=== PATIENT | female | born 1945 | race Caucasian/White ===

== ENCOUNTER → 2021-02-21 12:36 | Outpatient (CLI) | payer MEDICARE, SELFPAY ==
--- NOTE | ~2021-02-21 | CT_ITS ---
EXAMINATION: CT lung screening DATE: 02/21/2021 12:54 INDICATION: Personal history of tobacco dependence TECHNIQUE: Computed tomography (CT) of the chest was performed without intravenous contrast. The dose -length product was 110.61 mGy-cm. Automated exposure control and iterative reconstruction technique were employed. COMPARISON: None FINDINGS: There are a few small scattered bilateral pulmonary nodules measuring 3 mm or less. No endo bronchial lesions. No endobronchial lesions. Mild emphysema. No thoracic lymphadenopathy. There is at herosclerosis of the aorta and coronary arteries. There are cholecystectomy clips in the upper abdome n. There is nodular liver surface suggesting cirrhosis. No lytic or blastic lesions no acute osseous abnormality. IMPRESSION: 1. Lung-RADS category 2: Benign appearance or behavior. Continue annual screening with noncontrast lo w-dose chest CT in 12 months. Reviewed, dictated and finalized at location A. IMPRESSION: 1. Lung-RADS category 2: Benign appearance or behavior. Continue annual screeni ng with noncontrast low-dose chest CT in 12 months.
== END ==
PROVIDERS: PCP Family Medicine; Visit Provider Family Medicine
DX: Z12.2 Encounter for screening for malignant neoplasm of respiratory organs (principal); Z87.891 Personal history of nicotine dependence
CPT/HCPCS: 71271

== ENCOUNTER 2021-04-29 08:51 | Outpatient (CLI) | payer MEDICARE, SELFPAY ==
--- NOTE | ~2021-04-29 | MM_ITS ---
EXAMINATION: MM screening [facility] BI w dennise HISTORY: Screening mammogram TECHNIQUE: Craniocaudal and mediolateral oblique 3-D tomosynthesis images were obtained and synthetic 2-D images were generated. CAD analysis was submitted and interpreted. COMPARISON: 11/14/2017, 05/24/2016, 08/23/2012 BREAST PARENCHYMAL COMPOSITION: There are scattered areas of fibroglandular density. FINDINGS: There is a 6 mm irregular opacity in the mid to posterior depth of the upper outer left sharee ast on craniocaudal projection (craniocaudal Tomosynthesis image 37/58). Diagnostic left mammogram an d left breast ultrasound examination are recommended. Otherwise no suspicious mass, architectural distortion, malignant calcification, skin thickening or r etraction of either breast is evident. Occasional benign calcifications. IMPRESSION: 1. 6 mm irregular opacity at mid to posterior depth of upper outer left breast on craniocaudal projec tion 2. Diagnostic left mammogram and left breast ultrasound examination are recommended BI-RADS Category 0: Incomplete: Needs additional imaging evaluation. Reviewed, dictated and finalized at location A. IMPRESSION: 1. 6 mm irregular opacity at mid to posterior depth of upper outer left breast on craniocaudal projection 2. Diagnostic left mammogram and left breast ultrasound examination are recomme nded BI-RADS Category 0: Incomplete: Needs additional imaging evaluation.
--- NOTE | ~2021-04-29 | DEXA_ITS ---
Bone Density Report Name: Saida Chavis Age: 76 Sex: Female Ethnicity: White Date of : 1945 Indication: postmenopausal; height loss; asthma or emphysema; Referring Provider: Beth Sapp Study: Bone densitometry was performed. Exam Date: April 29, 2021 Accession number: [id number] Bone Density: Region BMD T-score Z-score Classification AP Spine (L1-L4) 0.925 -1.1 1.2 Osteopenia Femoral Neck (Left) 0.625 -2.0 0.0 Osteopenia Total Hip (Left) 0.824 -1.0 0.8 Normal Total Hip Bilateral Avg 0.819 -1.1 0.8 Osteopenia Femoral Neck (Right) 0.578 -2.4 -0.4 Osteopenia Total Hip (Right) 0.813 -1.1 0.7 Osteopenia World Health Organization criteria for BMD impression classify patients as: Normal (T-score at or above -1.0), Osteopenia (T-score between -1.0 and -2.5), or Osteoporosis (T-score at or below -2.5). 10-year Fracture Risk(1): Major Osteoporotic Fracture 16% Hip Fracture 6.5% Reported Risk Factors: [place] (), Neck BMD=0.578, BMI=30.9, smoking (1) FRAX(R) Version 3.08. Fracture probability calculated for an untreated patient. Fracture probability may be lower if the patient has received treatment. Clinical Information Provided by Patient: Smokes Has used the following medications: Vitamin D Has the following medical conditions: Asthma or Emphysema Patient maximum height was 59 Menopause Age: 37 No regular weight bearing exercise Drinks caffeinated beverages Onset of menses at age 14 Number of children 3 Impression: The patient has low bone mass, based on the Right Femoral Neck T-score. The patient has an estimated ten-year risk of hip fracture of 6.5% and an estimated ten-year risk of major fracture of 16%, based on the WHO FRAX algorithm. The patient has risk factors, including: smoking. Discussion: BONE DENSITY IS LOW AT ONE OR MORE SKELETAL SITES. THE PATIENT'S BMD AND CLINICAL RISK FACTORS CONTRIBUTE TO THIS PATIENT'S INCREASED RISK OF FRACTURE. This patient's lowest T-score is low at one or more skeletal sites. It meets the World Health Organization's (WHO) criteria for ?low bone mass? (T-score between -1.0 and -2.5). The patient's 10-year risk of hip fracture as calculated by FRAX exceeds the threshold where pharmacological therapy is recommended by the National Osteoporosis Foundation (NOF). However, all treatment decisions require clinical judgment and consideration of individual patient factors, including patient preferences, comorbidities, previous drug use, risk factors not captured in the FRAX model (e.g., frailty, falls, vitamin D deficiency, increased bone turnover, interval significant decline in bone density) and possible under or overestimation of fracture risk by FRAX. The patient should follow a healthful lifestyle (good nutrition with adequate calcium and vitamin D,
== END 2021-04-29 08:52 | disposition home or self-care (01) ==
PROVIDERS: PCP Family Medicine; Visit Provider Physician Assistant
DX: Z12.31 Encounter for screening mammogram for malignant neoplasm of breast (principal); Z78.0 Asymptomatic menopausal state; M85.89 Other specified disorders of bone density and structure, multiple sites; R92.8 Other abnormal and inconclusive findings on diagnostic imaging of breast
CPT/HCPCS: 77063; 77067; 77080

== ENCOUNTER 2021-05-24 12:15 | Outpatient (CLI) | payer MEDICARE, SELFPAY ==
--- NOTE | ~2021-05-24 | MMUS_ITS ---
EXAMINATION: MM diagnostic mammo unilat LT, US breast LT limited HISTORY: Follow-up left breast asymmetry TECHNIQUE: Additional 3-D tomosynthesis images of the left breast were performed and synthetic 2-D im ages were generated. CAD analysis was submitted and interpreted. High resolution Limited left breast ultrasound was performed. COMPARISON: 04/29/2021 BREAST PARENCHYMAL COMPOSITION: Breast composed of scattered areas of fibroglandular density. FINDINGS: MAMMOGRAPHIC FINDINGS: Asymmetry in the outer aspect of the left breast is less dense with spot compression, consistent with superimposed fibroglandular tissue. No discrete mass, architectural distortion or suspicious calcifi cations are identified. ULTRASOUND: Limited left breast ultrasound: Normal heterogeneous echotexture without focal solid or cystic mass. IMPRESSION: 1. No evidence for malignancy in the left breast. 2. Routine yearly screening mammogram and regular clinical breast examination are recommended. BI-RADS Category 2: Benign finding(s). Reviewed, dictated and finalized at location A. IMPRESSION: 1. No evidence for malignancy in the left breast. 2. Routine yearly screening mammogram and regular clinical breast examination a re recommended. BI-RADS Category 2: Benign finding(s).
== END 2021-05-24 12:16 | disposition home or self-care (01) ==
LOC: ANHIMG 12:19
PROVIDERS: PCP Family Medicine; Visit Provider Family Medicine
DX: R92.8 Other abnormal and inconclusive findings on diagnostic imaging of breast (principal)
CPT/HCPCS: 76642; 77065

== ENCOUNTER 2021-12-08 19:56 | Inpatient (IN) | payer MEDICARE, SELFPAY ==
[2021-12-08] VITALS (14 sets, daily range): BP systolic 153–215; BP diastolic 70–122; PULSE 60–79; RESP 13–22; TEMP 36.4–36.7; O2SAT 96–100; BMI 24.0
--- NOTE | ~2021-12-08 | XR_ITS ---
EXAMINATION: XR chest 1V portable EXAM DATE: 12/08/2021 20:14 INDICATION: Stemi, Mid Sternal Cp, States No Cardiac Hx TECHNIQUE: Portable AP frontal chest x-ray was obtained. There is no prior study for comparison. FINDINGS: The lungs are clear. There are no pleural effusions. Cardiac silhouette is prominent but magnified on this AP technique. There is no pneumothorax suspected. The bones and soft tissues are unremarkable. IMPRESSION: No acute cardiopulmonary findings. Reviewed, dictated and finalized at location G. [facility]
--- NOTE | 2021-12-08 20:04 | ED.CHESTPAIN ---
HPI - Chest Pain General Chief Complaint: Chest Pain Stated Complaint: STEMI Time Seen by Provider: 12/08/21 20:04 Source: patient, EMS and RN notes reviewed History of Present Illness HPI narrative: 76-year-old female with history of hypertension and COPD and smoking presents to the emergency department for evaluation of chest pain for 1 hour. Patient states while she was at rest she had onset of chest pain. Patient did call EMS. EMS called a STEMI in the field. Patient was treated with 324 aspirin. Patient denies any previous VT and denies ever having a stress test. Related Data Allergies Allergy/AdvReac Type Severity Reaction Status Date / Time ERYTHROMYCIN ESTOLATE Allergy Unknown Uncoded 09/23/12 14:13 Review of Systems Review of Systems: CONSTITUTIONAL: Denies fever, chills, or sweats. EYES: Denies visual changes, redness, or discharge. ENT: Denies rhinorrhea, congestion, sore throat, or otalgia. CARDIOVASCULAR: ss chest pain that radiated to left arm RESPIRATORY: Denies cough or dyspnea. GASTROINTESTINAL: nausea GENITOURINARY: Denies dysuria or hematuria. SKIN: Denies rash or itching. MUSCULOSKELETAL: Denies back pain, joint pain, or myalgia. NEUROLOGIC: Denies headache, numbness, or weakness. PSYCHIATRIC: Denies anxiety or depression. [facility] Family History Family History (Updated 06/17/18 @ 08:32 by DOCTOR UNKNOWN) Mother Family history of glaucoma Family history of chronic obstructive pulmonary disease Family history of congestive heart failure Father Family history of malignant neoplasm Family history of Alzheimer's disease Other Diabetes mellitus Social History Social History Smoking status: Current every day smoker Alcohol intake: current Exam Narrative: APPEARANCE: Well appearing, no pain, no distress, well-nourished. HEAD: normocephalic, atraumatic. EYES: PERRLA/EOMI, conjunctivae clear. NOSE: Normal no drainage NECK: Supple. No adenopathy, no masses. RESPIRATORY: Airway patent, respirations nonlabored. Clear to auscultation bilaterally, no rales, rhonchi, wheezing. CARDIOVASCULAR: Regular rate and rhythm without murmurs rubs or gallops. ABDOMINAL: Soft, nontender, nondistended, normal bowel sounds MUSCULOSKELETAL: Moves all extremities. Strength/ROM intact, No edema, No calf tenderness. NEURO: Alert. Cranial nerves II through XII intact. SKIN: Warm, dry. Normal Color PSYCHIATRIC: Normal affect/mood. Course Course Emergency Course: Upon arrival to the emergency department patient was alert and oriented. EMS EKG was sent to Dr. Jones along with our first EKG. It was read as an inferior VT. Patient was started on Brilinta, metoprolol, morphine and provided Zofran for nausea control. No nitro was given due to inferior VT. Patient was given 324 aspirin in field. Consultations Consultation #1: Dr Jones was consulted for STEMI. ECG shows an inferior stemi. Patient was treated with ASA by ems. Birlinta and metoprolol were ordered. Physician is en route to the hospital but weather is inclement. Vital Signs Vital signs: Vital Signs Temperature 98 F 12/08/21 19:57 Pulse Rate 61 12/08/21 19:57 Respiratory Rate 22 H 12/08/21 19:57 Pulse Oximetry 98 12/08/21 19:57 Temperature 98 F 12/08/21 19:57 Pulse Rate 60 12/08/21 20:41 Respiratory Rate 13 12/08/21 20:41 Blood Pressure 189/70 H 12/08/21 20:41 Pulse Oximetry 98 12/08/21 20:41 MDM - Chest Pain MDM Narrative Medical decision making narrative: STEMI called and patient was taken to the woods laborer by cardiology Lab Data Attestation: I reviewed the patient's lab results. Result diagrams: 12/08/21 20:11 12/08/21 20:11 Labs: Lab Results 12/08/21 12/08/21 12/08/21 Range/Units 20:10 20:11 20:11 WBC 6.1 (4.5-10.0) K/mm3 RBC 5.21 (4.2-5.4) M/mm3 Hgb 14.2 (12.0-15.0) g/dL Hct 44.1 (37.0-47.0) % MCV 84.6 (80-100) fl MCH 27.3 (26-34)
--- NOTE | 2021-12-08 20:05 | ECG_ITS ---
Measurements Intervals [place] Rate: 75 P: TN: 0 QRS: 40 QRSD: 97 T: 86 QT: 398 QTc: 447 Interpretive Statements SINUS RHYTHM INFERIOR ST ELEVATION MYOCARDIAL INFARCT- ACUTE POSTERIOR INFARCT- ACUTE ABNORMAL ECG Electronically Signed On 12-08-2021 20:26:57 PRESIDENT & CEO by Stuart Lindsay D.O.
[2021-12-08] MEDS: ONDANSETRON INJ 4 MG/2 ML VIAL (20:17)
[2021-12-08] MEDS: MORPHINE SULFATE (*CRX) 2 MG/ML INJ ×2 (20:17→20:26)
[2021-12-08] MEDS: TICAGRELOR 90 MG TABLET 180 MG (20:18)
[2021-12-08 20:21] LABS: Basophils Percent Auto 0.7 % (0.2-1.2); Eosinophils Absolute Auto 0.1 K/mm3 (0-0.3); Eosinophils Percent Auto 1.2 % (0-4.4); Hematocrit 44.1 % (37.0-47.0); Hemoglobin 14.2 g/dL (12.0-15.0); Immature Granulocyte Absolute 0.01 K/mm3 (0.00-0.031); Immature Granulocyte Percent A 0.2 % (0-0.5); Lymphocytes Absolute Auto 2.07 K/mm3 (0.9-3.2); Lymphocytes Percent Auto 34.1 % (18.3-44.2); Mean Corpuscular HGB Conc 32.2 g/dl (32-36); Mean Corpuscular Hemoglobin 27.3 pg (26-34); Mean Corpuscular Volume 84.6 fl (80-100); Mean Platelet Volume 10.3 fl (7.4-10.4); Monocytes Absolute Auto 0.7 K/mm3 (0.1-0.6); Monocytes Percent Auto 10.7 % (2.6-8.5); Neutrophils Absolute Auto 3.2 K/mm3 (1.3-6.7); Neutrophils Percent Auto 53.1 % (45.5-73.1); Platelet Count Result 140 k/mm3 (150-375); Red Blood Count 5.21 M/mm3 (4.2-5.4); Red Cell Distribution Width 15.6 % (11.5-14.5); White Blood Count 6.1 K/mm3 (4.5-10.0)
--- NOTE | 2021-12-08 20:29 | PC.NURSE ---
Daughter (Fiorella) contacted @ [phone]. notified that pt is in the ER, getting prepped for dental laboratory supervisor and staff will call with an update after. If daughter is unavailable and does not answer the phone, please leave a message with call back number for nurses station. daughter has to work at 6am and may not answer the phone.
[2021-12-08 20:33] LABS: EDCOVIDSCREEN Negative (Negative)
[2021-12-08 20:36] LABS: Partial Thromboplastin Time 30.7 SECONDS (22.3-36.8)
[2021-12-08 20:39] LABS: Alanine Aminotransferase 23 U/L (4-35); Albumin Level 4.2 g/dL (3.5-5.1); Alkaline Phosphatase 159 U/L (38-126); Anion Gap 8 mmol/L (8-16); Aspartate Amino Transferase 40 U/L (14-36); Bilirubin,Total 0.5 mg/dL (0.2-1.3); Blood Urea Nitrogen 14 mg/dL (7-17); Calcium 9.9 mg/dL (8.4-10.2); Carbon Dioxide 27 mmol/L (22-30); Chloride 103 mmol/L (98-107); Cholesterol 252 mg/dL (0-200); Estimated Glomerular Filt Rate > 60; Glucose 168 mg/dL (65-110); HDL Direct 39 mg/dL; Potassium 3.5 mmol/L (3.4-5.0); Sodium 138 mmol/L (137-145); Triglycerides 159 mg/dL (<150)
[2021-12-08 20:50] LABS: LDL Cholesterol Direct 165 mg/dL
[2021-12-08 20:56] LABS: Troponin I 0.185 ng/mL (0.000-0.034)
--- NOTE | 2021-12-08 21:51 | ECG_ITS ---
Measurements Intervals [place] Rate: 54 P: 84 [place]: 212 QRS: 28 QRSD: 90 T: 0 QT: 426 QTc: 406 Interpretive Statements SINUS BRADYCARDIA WITH MARKED SINUS ARRHYTHMIA WITH FIRST DEGREE AV BLOCK MINIMAL Q WAVES- INFERIOR LEADS NONSPECIFIC ST & T-WAVE ABNORMALITY- ANTERIOR LEADS BASELINE ARTIFACT- I, II, III, AVR, AVL, AVF, V1-V6 ABNORMAL ECG Electronically Signed On 12-09-2021 6:43:02 FACILITY MANAGER HISTOLOGY by Stuart Lindsay D.O.
--- NOTE | 2021-12-08 21:56 | PM.IMHP ---
H&P: HPI History of Present Illness Date/Time: 12/08/21 21:56 Chief Complaint: chest pain Narrative: this is a 76-year-old woman who began to experience substernal chest pain at her home and 911 was called to the scene. ECG in the field was found to be diagnostic of acute inferior wall MO. STEMI protocol was activated. The patient reports no prior history of heart disease. She does have a history of diabetes hypertension and dyslipidemia and cigarette smoking. No further history is obtainable at the time of this emergency. She arrives in the cardiac catheterization lab experiencing 5 to 6/10 chest pain. Review of Systems Review of Systems: ROS unobtainable: Yes unobtainable due to medical condition [facility] Family History Family History (Updated 06/17/18 @ 08:32 by DOCTOR UNKNOWN) Mother Family history of glaucoma Family history of chronic obstructive pulmonary disease Family history of congestive heart failure Father Family history of malignant neoplasm Family history of Alzheimer's disease Other Diabetes mellitus Social History Social History Smoking status: Current every day smoker Alcohol intake: current Meds Home Medications and Allergies Allergies Allergy/AdvReac Type Severity Reaction Status Date / Time ERYTHROMYCIN ESTOLATE Allergy Unknown Uncoded 09/23/12 14:13 Vital Signs Vital Signs - 24 hr 12/08/21 19:57 12/08/21 20:03 12/08/21 20:04 Temperature 36.6 C Pulse Rate 61 Respiratory Rate 22 H Blood Pressure 215/93 H 211/122 H Pulse Oximetry 98 12/08/21 20:20 12/08/21 20:21 12/08/21 20:27 Temperature Pulse Rate 76 78 Respiratory Rate 20 14 Blood Pressure 191/91 H 188/87 H Pulse Oximetry 98 99 96 12/08/21 20:31 12/08/21 20:41 Temperature Pulse Rate 71 60 Respiratory Rate 17 13 Blood Pressure 197/80 H 189/70 H Pulse Oximetry 96 98 Exam Const: General: in distress and uncomfortable Other: overweight white female appearing her stated age in mild distress with chest pain HENMT: Mouth: Yes moist mucous membranes Eyes: Sclera: sclerae normal Pupils: Equal, round and reactive pupils present Neck: Neck: supple and no JVD Other: carotid pulses are intact and there are no audible bruits. Resp: Effort & Inspection: normal respiratory effort Auscultation: clear to auscultation bilaterally Cardio: Rate: regular rate Rhythm: regular rhythm Other: No murmur S4 gallop is audible GI: GI Palp: Yes Soft to palpation Auscultation: normal bowel sounds Skin: General skin exam: normal color Neuro: Cognition (Neuro): normal cognition Extrem: General: normal to inspection H&P: Results Labs Labs: Short CBC 12/08/21 Range/Units 20:11 WBC 6.1 (4.5-10.0) K/mm3 Hgb 14.2 (12.0-15.0) g/dL Hct 44.1 (37.0-47.0) % Plt Count 140 L (150-375) k/mm3 BMP 12/08/21 20:11 Sodium 138 Potassium 3.5 Chloride 103 Carbon Dioxide 27 BUN 14 Creatinine 0.80 Glucose 168 H Calcium 9.9 Cardiac Enzymes 12/08/21 Range/Units 20:11 Troponin I 0.185 H* (0.000-0.034) ng/mL Liver Function 12/08/21 Range/Units 20:11 Total Bilirubin 0.5 (0.2-1.3) mg/dL AST 40 H (14-36) U/L ALT 23 (4-35) U/L Alkaline Phosphatase 159 H (38-126) U/L Albumin 4.2 (3.5-5.1) g/dL Assessment and Plan Additional Plan this is a 76-year-old woman with risk factors including hypertension diabetes dyslipidemia and cigarette smoking presenting with ischemic chest pain and ECG evidence of acute inferior current of injury. Preparations being made for emergency angiography and revascularization based on findings Abe Jones MD LOCATED [facility]IN [facility]
--- NOTE | 2021-12-08 21:59 | WPDCARDPROC ---
Cardiac Cath Procedure Note Date of procedure:: 12/08/21 Performing physician:: Abe Jones MD Indication:: acute inferior wall DC Brief clinical history:: this is a 76-year-old woman presents this evening with chest pain from home. ECG in the field demonstrates acute inferior current of injury. Risk factors for coronary disease include hypertension diabetes dyslipidemia and smoking. Procedure Procedure performed:: Emergency coronary angiography emergency PCI of the RPL left ventriculography Sedation/Medication given:: no sedation Access site:: right femoral artery Estimated blood loss:: 50 cc Procedure note:: patient was brought to the cardiac catheterization lab in the emergency setting described above. The right femoral triangle was prepared and draped in the usual fashion. Anesthesia was provided with 1% lidocaine infiltrated locally. Using the modified Seldinger technique the femoral artery was punctured and a 6 [place] vascular sheath was placed. After this I used a standard 5 [place] FL4 catheter to engage and inject the left coronary artery in multiple projections. I then used a 5 [place] JR4 guiding catheter to engage and inject the right coronary artery in orthogonal projections. Following this the cineangiograms were reviewed. PCI of the right coronary artery /RPL branch were recommended carried out as detailed below. The patient received aspirin and 180 mg of Brilinta in the emergency department. She was systemically anticoagulated with Angiomax bolus and infusion for procedural anticoagulation. Following conclusion of PCI as described below a 5 [place] angled pigtail catheter was used to left-sided hemodynamics and to inject LV g in the RAMIREZ projection. Following this the sheath was sutured into position the case was terminated. He take the ICU for post DC PCI recovery. The procedure was uncomplicated there was no groin hematoma upon leaving the cardiac catheterization lab. Findings:: Hemodynamics: The central aortic pressure is 196 over 70 left ventricle 196/5 end-diastolic pressure 22. There was no gradient on pullback across the aortic valve. Left ventricle: Left ventricle is normal in size the inferior wall is akinetic there is anterior wall and apex contract well global ejection fraction 50%. The left main coronary artery is widely patent the left anterior descending is a moderate to large caliber artery extending down to around the apex the LAD has diffuse luminal irregularities but no flow-limiting lesions are identified. The circumflex is a medium caliber artery giving rise to the marginal branches and a posterior branch. The circumflex system is also remarkable for mild diffuse luminal irregularities but no flow-limiting lesions are seen. The right coronary artery is large caliber and dominant to the posterior circulation. The RCA trunk is ectatic Aubree dilated with diffuse luminal irregularities. The RPL appears to be the culprit for this acute DC it is totally occluded just after the origin of the RPDA. The RPDA is diseased at its origin but is very small. Intervention: I used a 0.014 BMW coronary guidewire to traverse the occlusion in the are PL. The lesion was pre-dilated using a 3 x 20 mm emerge balloon. Following this there was ROSARIO 3 flow restored into the RPL branch. For a short time the patient then had reperfusion arrhythmias including sinus bradycardia and accelerated idioventricular rhythm. All of this was asymptomatic and requires no treatment. Following this I stented the target lesion in the RPL using a 3 x 26 mm Orsiro stent with an excellent anatomical result. The origin of the RPDA had 80-90 stenosis in it at that time. I withdrew the guidewire from the RPL and directed it easily into the RPDA. I used a 2 mm emerge balloon at nominal pressure with 2 to the dilatations at this segment and the ostium of the PDA was still stenotic. For that reason I stented using a 2.25
--- NOTE | 2021-12-08 22:20 | ECG_ITS ---
Measurements Intervals [place] Rate: 77 P: 68 [place]: 230 QRS: 40 QRSD: 88 T: 33 QT: 398 QTc: 451 Interpretive Statements SINUS RHYTHM WITH SINUS ARRHYTHMIA WITH FIRST DEGREE AV BLOCK MINIMAL Q WAVES- INFERIOR LEADS BORDERLINE ST-T WAVE ABNORMALITY- DIFFUSE LEADS BASELINE ARTIFACT- I, II, III, AVR, AVL, AVF ABNORMAL ECG Electronically Signed On 12-09-2021 6:44:33 MCAT INSTRUCTOR by Stuart Lindsay D.O.
--- NOTE | 2021-12-08 23:05 | PC.NURSE ---
This patient, Saida Chavis, was admitted to Intensive Care Unit-1. Patient/family oriented to hospital policies and general routines including ID bracelet, bed and alarms, visiting hours, pain management, procedures, bathroom and other care routines, personal items, smoking policy, room service/diet, and visiting hours. Information on how to activate the Rapid Response Team has been discussed. Patient/Family are encouraged to report perceived risks to care and to ask questions if they do not understand what they are told or what they should do.
[2021-12-08] MEDS: METOPROLOL TARTRATE 25 MG TABLET PO (23:19)
[2021-12-08] MEDS: diphenhydrAMINE HCl CAP 25 MG CAPSULE 50 MG PO (23:19)
[2021-12-08] MEDS: SODIUM CHLORIDE 0.9% IV 1,000 ML 125 ML IV CONT (23:20)
--- NOTE | 2021-12-08 23:42 | PC.NURSE ---
2230 angiomax infusion completed. Pt reminded of bedrest with head flat and right leg straight. Verbalizes understanding.
[2021-12-09] VITALS (27 sets, daily range): BP systolic 127–179; BP diastolic 56–94; PULSE 18–75; RESP 16–97; TEMP 36.3–36.9; O2SAT 93–100
--- NOTE | 2021-12-09 | ECHO_ITS ---
Patient Info Name: Saida Chavis Age: 76 years : 1945 Gender: Female Ht: 64 in Wt: 141 lbs BSA: 1.71 m2 HR: 54 bpm BP: 112 / 90 mmHg Heart Rhythm: Sinus Rhythm Exam Date: 12/09/2021 10:57 AM Exam Location: [facility] Patient Status: Inpatient Admit Date: 12/08/2021 Staff Ordering Physician: Raymond Kumari MD Professor Of History: [place], DALICS, RT Attending Provider: Abe Jones MD Exam Type: CA echo doppler color flow Study Info Indications I21.3 - ST elevation (STEMI) myocardial infarction of unspecified site Complete two-dimensional, color flow and Doppler transthoracic echocardiogram is performed. Strain analysis performed. Summary 1. Complete two-dimensional, color flow and Doppler transthoracic echocardiogram is performed. 2. There is mild concentric increased left ventricular wall thickness. 3. Left ventricular systolic function is normal, estimated at 65-70%. 4. No visible regional wall motion abnormalities. 5. There is mild aortic valve sclerosis. Left Ventricle Left ventricular chamber dimension is normal. Left ventricular systolic function is normal, estimated at 65-70%. There is mild concentric increased left ventricular wall thickness. The left ventricular diastolic function is grade I diastolic dysfunction. No visible regional wall motion abnormalities. Right Ventricle Right ventricular chamber dimension is normal. Left Atria Left atrial chamber dimension is normal. Right Atria Right atrial chamber dimension is normal. Aortic Valve The aortic valve is trileaflet. There is mild aortic valve sclerosis. Pulmonic Valve The pulmonic valve is not well visualized. Mitral Valve The mitral valve has normal leaflets. Tricuspid Valve The tricuspid valve leaflets are normal. Pericardium/Pleural The pericardium appears normal. Aorta The aortic root size at the sinus of Valsalva is normal. Left Ventricular Outflow Tract Name Value Normal LVOT 2D LVOT Diameter 2.0 cm LVOT Doppler LVOT Peak Gradient 2 mmHg LVOT Mean Gradient 1 mmHg LVOT VTI 20 cm LVOT VTI/AV VTI Ratio 0.7 LVOT Stroke Volume 59 ml LVOT CO 3.0 l/min LVOT CI 1.8 l/min/m2 Mitral Valve Name Value Normal MV Doppler MV Decel Steele 316 cm/s2 MV PHT 77 ms MV Area (PHT) 2.8 cm2 4.0-5.0 MV Diastolic Function MV E Peak Velocity 84 cm/s MV A Peak Velocity 88 cm/s MV E/A 1.0
--- NOTE | 2021-12-09 05:11 | ECG_ITS ---
Measurements Intervals [place] Rate: 52 P: 52 PA: 195 QRS: 11 QRSD: 88 T: 23 QT: 467 QTc: 438 Interpretive Statements SINUS BRADYCARDIA WITH SINUS ARRHYTHMIA EARLY PRECORDIAL R/S TRANSITION CONSIDER INFERIOR INFARCT, AGE INDETERMINATE BORDERLINE ST ABNORMALITY- HIGH LATERAL LEADS ABNORMAL ECG Electronically Signed On 12-09-2021 12:08:15 ANDROID PROGRAMMER by Stuart Lindsay D.O.
[2021-12-09] MEDS: TICAGRELOR 90 MG TABLET PO ×2 (08:19→21:34)
[2021-12-09] MEDS: LOSARTAN POTASSIUM 25 MG TABLET PO (08:19)
[2021-12-09] MEDS: ROSUVASTATIN 10 MG TABLET 20 MG PO (08:19)
[2021-12-09] MEDS: ASPIRIN 81 MG CHEWABLE TABLET PO (08:21)
[2021-12-09 08:43] LABS: Glucose Point of Care 138 mg/dl (65-105)
--- NOTE | 2021-12-09 09:27 | WPDCNINT ---
Assessment and Plan Assessment and plan (1) Acute inferior myocardial infarction: Code(s): I21.19 - ST elevation (STEMI) myocardial infarction involving other coronary artery of inferior wall Status: Acute Assessment and Plan: status post PCI continue dual antiplatelet therapy, ARB, beta-dio, statin check echo telemetry monitoring (2) Diabetes mellitus: Code(s): E11.9 - Type 2 diabetes mellitus without complications Status: Acute Assessment and Plan: sliding scale insulin resume metformin (3) Tobacco abuse: Code(s): Z72.0 - Tobacco use Status: Acute Assessment and Plan: patient was counseled to quit smoking more than 5 minutes I do not think she is interested at this point (4) COPD (chronic obstructive pulmonary disease): Code(s): J44.9 - Chronic obstructive pulmonary disease, unspecified Status: Acute Assessment and Plan: patient appears to have undiagnosed COPD as she has wheezing on exam p.r.n bronchodilators (5) Hyperlipidemia: Code(s): E78.5 - Hyperlipidemia, unspecified Status: Acute Assessment and Plan: continue statin Additional Plan DVT prophylaxis - start Lovenox from tomorrow Nutrition - heart healthy diet Code Status - Full Code IS, 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 pain was 5/10, pressure, no radiation, no aggravating or relieving factor and was associated with shortness of breath nausea and dizziness.. 911 was called to the scene. ECG in the field was found to be diagnostic of acute inferior wall [place]. STEMI protocol was activated. Patient was taken to cardiac catheterization lab and underwent PCI. Her chest pain resolved post procedure. This morning when I evaluated the patient she states her pain has completely resolved. She denies any complaints at this time. Review of system was positive for chronic cough postnasal drip. she also admitted to having some wheezing occasionally. All other systems were reviewed and were negative. She has never been evaluated for COPD And she is vaccinated against COVID-19 Review of Systems Review of Systems: All systems reviewed & are unremarkable except as noted in HPI and below (HPI) [facility] Family History Family History Mother Family history of glaucoma Family history of congestive heart failure Family history of chronic obstructive pulmonary disease Father Family history of malignant neoplasm Family history of Alzheimer's disease Grandparent Cerebrovascular accident Son Hypertension Other Diabetes mellitus Social History Social History Smoking packs per day: 1 Smoking cigarettes per day: 20.0 Years smoked: 60 Smoking pack-years: 60.00 Smoking status: Current every day smoker Tobacco type: cigarettes Second hand tobacco smoke exposure: No Alcohol intake: never Substance use: never Spiritual care concerns: No Meds Home Medications and Allergies Home Medications Medication Instructions Recorded Confirmed Type alendronate See Rx Instructions .ROUTE .COMPLEX 12/09/21 12/09/21 History amlodipine 5 mg PO DAILY 12/09/21 12/09/21 History bimatoprost [Lumigan] 1 drp EACH EYE HS 12/09/21 12/09/21 History lisinopril 20 mg PO DAILY 12/09/21 12/09/21 History metformin 500 mg PO BID 12/09/21 12/09/21 History Allergies Allergy/AdvReac Type Severity Reaction Status Date / Time ERYTHROMYCIN ESTOLATE Allergy Unknown Rash Uncoded 12/09/21 00:08 Vital Signs Vital Signs - 24 hr 12/08/21 19:57 12/08/21 20:03 12/08/21 20:04 Temperature 36.6 C Pulse Rate 61 R
[2021-12-09 12:46] LABS: Glucose Point of Care 145 mg/dl (65-105)
[2021-12-09 12:47] LABS: Hemoglobin A1C 6.9 % (<5.7)
[2021-12-09 17:07] LABS: Glucose Point of Care 206 mg/dl (65-105)
[2021-12-09] MEDS: INSULIN ASPART (*BKC) 100 UNITS/ML SUB-Q (17:11)
[2021-12-09] MEDS: metFORMIN HCL 500 MG TABLET PO (17:35)
[2021-12-09] MEDS: METOPROLOL TARTRATE 25 MG TABLET PO (21:33)
[2021-12-09] MEDS: LATANOPROST 0.005% OP SOLN 2.5 ML BTL 1 DROP EACH EYE (21:34)
[2021-12-09 21:51] LABS: Glucose Point of Care 120 mg/dl (65-105)
[2021-12-10] VITALS: BP 146/57; PULSE 61; PULSE 63; RESP 22; TEMP 36.9; O2SAT 97
[2021-12-10 04:00] VITALS: PULSE 66
[2021-12-10 04:15] VITALS: BP 139/56; PULSE 60; RESP 16; TEMP 36.3; O2SAT 96
--- NOTE | 2021-12-10 04:22 | PC.NURSE ---
Report given to Estefany GEORGE on 3rd med surge 12/07/21 [id number]. Pt being packed up and will transport per wheelchair Belongings and medications sent with patient.
[2021-12-10 04:30] LABS: Hematocrit 38.3 % (37.0-47.0); Mean Corpuscular HGB Conc 31.3 g/dl (32-36); Mean Corpuscular Hemoglobin 27.1 pg (26-34); Mean Corpuscular Volume 86.5 fl (80-100); Mean Platelet Volume 10.4 fl (7.4-10.4); Platelet Count Result 130 k/mm3 (150-375); Red Blood Count 4.43 M/mm3 (4.2-5.4); Red Cell Distribution Width 15.8 % (11.5-14.5); White Blood Count 6.1 K/mm3 (4.5-10.0)
[2021-12-10 04:49] LABS: Alanine Aminotransferase 24 U/L (4-35); Albumin Level 3.5 g/dL (3.5-5.1); Alkaline Phosphatase 122 U/L (38-126); Anion Gap 2 mmol/L (8-16); Aspartate Amino Transferase 73 U/L (14-36); Bilirubin,Total 0.8 mg/dL (0.2-1.3); Blood Urea Nitrogen 13 mg/dL (7-17); Calcium 9.7 mg/dL (8.4-10.2); Carbon Dioxide 24 mmol/L (22-30); Chloride 108 mmol/L (98-107); Estimated CRCL calculation 42 ml/min; Estimated Glomerular Filt Rate > 60; Glucose 128 mg/dL (65-110); Magnesium 1.8 mg/dL (1.6-2.3); Potassium 4.1 mmol/L (3.4-5.0); Sodium 134 mmol/L (137-145)
--- NOTE | 2021-12-10 04:53 | PC.NURSE ---
This patient, Saida Chavis, was received from [ ICU] on 12/10/21 at 0440. Patient/family oriented to unit policies and routines
[2021-12-10 06:30] LABS: Glucose Point of Care 129 mg/dl (65-105)
[2021-12-10 08:00] VITALS: PULSE 60
[2021-12-10] MEDS: ROSUVASTATIN 10 MG TABLET 20 MG PO (08:25)
[2021-12-10 08:26] VITALS: PULSE 70
[2021-12-10] MEDS: LOSARTAN POTASSIUM 25 MG TABLET PO (08:26)
[2021-12-10] MEDS: TICAGRELOR 90 MG TABLET PO (08:26)
[2021-12-10] MEDS: METOPROLOL TARTRATE 25 MG TABLET PO (08:26)
[2021-12-10] MEDS: metFORMIN HCL 500 MG TABLET PO (08:26)
[2021-12-10] MEDS: ENOXAPARIN 40 MG/0.4 ML SYRINGE SUB-Q (08:27)
[2021-12-10] MEDS: ASPIRIN 81 MG CHEWABLE TABLET PO (08:27)
[2021-12-10 11:42] LABS: Glucose Point of Care 157 mg/dl (65-105)
[2021-12-10 12:00] VITALS: PULSE 58
--- NOTE | 2021-12-10 13:16 | PM.DS ---
DS: Admitting Diagnosis Discharge Date 12/10/2021 Admitting Diagnosis Acute coronary syndrome-inferior ST-elevation myocardial infarction DS: Summary Hospital Course Hospital Course: 76-year-old female with hypertension, tobacco abuse. Patient was brought to [facility] on 12/08/2021 with chest pain found to have inferior ST-elevation NC. She was emergently taken to the cardiac catheterization lab by Dr. Jones, and underwent primary PCI/JEANIE x2 RPL and RPDA. Echocardiogram showed relatively preserved ejection fraction. Post PCI hospital course remained uneventful. On the day of discharge, patient denied any ongoing chest pain or shortness of breath. She was eager to go home. Patient was advised to be fully compliant with medical regimen, especially dual antiplatelet therapy with aspirin and ticagrelor. Patient was strongly advised to quit tobacco. Time spent discussing smoking cessation with patient: 3 to 10 minutes Status at Discharge Functional status at discharge: independent ambulation Time Spent with Patient Time attestation: Total time spent providing and/or coordinating discharge services: 42 minutes Time spent: Greater than 30 minutes Exam Narrative: PHYSICAL EXAMINATION: GENERAL: Alert, oriented, no acute distress MENTAL STATUS: affect appropriate to mood EYES: Extraocular movements intact, no pallor EARS: External ears appear normal, hearing grossly normal NOSE: Normal and patent, no discharge MOUTH: Mucous membranes moist, tongue normal NECK: Supple, no JVD CHEST: Coarse breath sounds HEART: Normal rate, regular rhythm, normal S1 and S2 ABDOMEN: Soft, nontender NEUROLOGICAL: Alert, oriented, normal speech, no gross motor deficits MUSCULOSKELETAL: No major deformity, no amputation EXTREMITIES: Right groin access site unremarkable SKIN: no rash on the exposed area, no cyanosis PSYCHIATRIC: Normal mood, appropriate affect DS: Data Data Completed and Pending Labs on day of discharge: Labs from last 24 hours 12/10/21 12/10/21 12/10/21 11:36 06:19 04:14 WBC RBC Hgb Hct MCV MCH MCHC RDW Plt Count MPV % Immature Plt Fraction Sodium 134 L Potassium 4.1 Chloride 108 H Carbon Dioxide 24 Anion Gap 2 L BUN 13 Creatinine 0.90 Estim Creat Clear Calc 42 Estimated GFR > 60 Glucose 128 H POC Capillary Glucose 157 H 129 H Calcium 9.7 Magnesium 1.8 Total Bilirubin 0.8 AST 73 H ALT 24 Alkaline Phosphatase 122 Total Protein 6.0 L Albumin 3.5 12/10/21 12/09/21 12/09/21 04:14 21:39 16:47 WBC 6.1 RBC 4.43 Hgb 12.0 Hct 38.3 MCV 86.5 MCH 27.1 MCHC 31.3 L RDW 15.8 H Plt Count 130 L MPV 10.4 % Immature Plt Fraction 5.0 Sodium Potassium Chloride Carbon Dioxide Anion Gap BUN Creatinine Estim Creat Clear Calc Estimated GFR Glucose POC Capillary Glucose 120 H 206 H Calcium Magnesium Total Bilirubin AST ALT Alkaline Phosphatase Total Protein Albumin Discharge Plan Discharge Attending physician on discharge: Alvarez Silver Discharging Clinician: Alvarez Silver Patient Disposition: Home, Self-Care Activity: other - see discharge instructions Diet: heart healthy Discharge Instructions: [facility] [address] [place] [address] DISCHARGE INSTRUCTIONS - POST PCI Activit
== END 2021-12-10 15:15 | disposition home or self-care (01) | DRG 247 ==
LOC: ANHED 20:35 → ANHICU 12-09 00:02 → ANH3MEDSUR 12-10 13:14 → ANHICU 12-12 14:35
PROVIDERS: Internal Medicine; Admitting Provider Specialist; Emergency Provider Emergency Medicine; PCP Family Medicine; Visit Provider Specialist
PROC: 4A023N7 Measurement of Cardiac Sampling and Pressure, Left Heart, Percutaneous Approach (ICD-10-PCS; CPT 93452; principal; 2021-12-08 20:20)
PROC: 4A023N7 Measurement of Cardiac Sampling and Pressure, Left Heart, Percutaneous Approach (ICD-10-PCS; 2021-12-08 20:20)
DX: I21.19 ST elevation (STEMI) myocardial infarction involving other coronary artery of inferior wall (principal); Z82.49 Family history of ischemic heart disease and other diseases of the circulatory system; Z20.822 Contact with and (suspected) exposure to COVID-19; Z79.899 Other long term (current) drug therapy; I10 Essential (primary) hypertension; E11.9 Type 2 diabetes mellitus without complications; E78.5 Hyperlipidemia, unspecified; F17.200 Nicotine dependence, unspecified, uncomplicated; J44.9 Chronic obstructive pulmonary disease, unspecified
CPT/HCPCS: 36415; 71045; 80053; 80061; 82948; 83036; 83735; 84484; 85025; 85027; 85055; 85610; 85730; 86850; 86900; 86901; 87426; 93005; 93306; 93458; 96374; 96375; 99285; A9270; C1725; C1769; C1874; C1887; C1894; C9606; C9803; J0461; J0583; J1644; J1650; J1815; J2270; J2405; J7030; J7040

== ENCOUNTER 2022-02-07 10:56 | Outpatient (RCR) | payer MEDICARE, SELFPAY ==
[2022-02-07 11:41] VITALS: PULSE 91
== END 2022-02-08 10:29 | disposition home or self-care (01) ==
LOC: ANHCPREHAB 10:56
PROVIDERS: PCP Family Medicine; Visit Provider Nurse Practitioner Adult Health
DX: Z95.5 Presence of coronary angioplasty implant and graft (principal)
CPT/HCPCS: 93798

== ENCOUNTER 2022-05-02 10:28 | Emergency (ER) | payer MEDICARE, SELFPAY ==
[2022-05-02 10:37] VITALS: BP 182/73; PULSE 84; RESP 16; TEMP 36.2; O2SAT 98
--- NOTE | 2022-05-02 11:47 | ED.GENADULT ---
HPI - General Adult General Chief complaint: Animal Bite Stated complaint: bitten by raccoon Time Seen by Provider: 05/02/22 11:03 History of Present Illness HPI narrative: Patient is 77 year old female here for evaluation after getting bit to her left wrist by a raccoon this morning. She states that she was taking trash this morning when she suddenly got bit by a small raccoon in the trash. The raccoon ran off. She was seen by her primary care provider this morning who irrigated the wound and covered it with antibiotic ointment and a dressing. Patient states that she is not up-to-date on her tetanus. Denies paresthesias in the hand. Has not taken anything for pain yet. Related Data Home Medications Medication Instructions Recorded Confirmed alendronate 70 mg tablet See Rx Instructions .Route .COMPLEX 12/09/21 02/07/22 lisinopril 20 mg tablet 40 mg PO DAILY 12/09/21 02/07/22 metformin 1,000 mg tablet 500 mg PO BID 12/09/21 02/07/22 cholecalciferol (vitamin D3) 25 25 mcg PO DAILY 02/07/22 02/07/22 mcg (1,000 unit) tablet (Vitamin D3) coenzyme Q10 100 mg capsule 50 mg PO DAILY 02/07/22 02/07/22 (CoQ-10) Allergies Allergy/AdvReac Type Severity Reaction Status Date / Time ERYTHROMYCIN ESTOLATE Allergy Unknown Rash Uncoded 12/09/21 00:08 Review of Systems Review of Systems: Gen: Denies fevers or chills Eyes: Denies eye pain or visual change ENT: Denies congestion Respiratory: Denies shortness of breath or cough CV: Denies chest pain or palpitations GI: Denies abdominal pain nausea, emesis or diarrhea denies burning, urgency, frequency or hematuria Musculoskeletal: Denies back pain or muscle pain Neuro: Denies numbness, tingling, weakness or focal weakness Skin: Bite to left forearm Except as documented, all other systems reviewed and negative PMFSH Family History Family History Mother Family history of glaucoma Family history of congestive heart failure Family history of chronic obstructive pulmonary disease Father Family history of malignant neoplasm Family history of Alzheimer's disease Grandparent Cerebrovascular accident Son Hypertension Other Diabetes mellitus Social History Social History Smoking packs per day: 1.5 Smoking cigarettes per day: 30.0 Years smoked: 59 Smoking pack-years: 88.50 Smoking status: Current every day smoker Tobacco type: cigarettes Second hand tobacco smoke exposure: No Additional smoking assessment comments: down to 0.5 packs per day Alcohol intake: never Substance use: never Spiritual care concerns: No Exam Narrative: Gen: Alert, oriented, no acute distress Eyes: EOMI, no icterus Pulm: Respirations even and unlabored, symmetric thorax expansion, no audible stridor or visible cyanosis CV: 2+ radial pulses bilaterally. Brisk capillary refill. GI: No distension, no voluntary/involuntary guarding Neuro: AOx4, moves all extremities without apparent difficulty or weakness, follows commands Skin: Patient has numerous bite hough to the radial aspect of her left distal forearm, no active bleeding. 1 cm linear laceration over the radial aspect of the left wrist, no active bleeding. Psych: Normal mood/affect, insight/judgement good, adequate fund of knowledge, recent/remote memory intact Course Vital Signs Vital signs: Vital Signs Temperature 97.2 F L 05/02/22 10:37 Pulse Rate 84 05/02/22 10:37 Respiratory Rate 16 05/02/22 10:37 Blood Pressure 182/73 H 05/02/22 10:37 Pulse Oximetry 98 05/02/22 10:37 Oxygen Delivery Room Air 05/02/22 10:37 Temperature 97.2 F L 05/02/22 10:37 Pulse Rate 84 05/02/22 10:37 Respiratory Rate 16 05/02/22 10:37 Blood Pressure 182/73 H 05/02/22 10:37 Pulse Oximetry 98 05/02/22 10:37 Oxygen Delivery Room Air 05/02/22 10:37 Medical Decision Making MDM Narrative Med
[2022-05-02] MEDS: TETANUS,DIPHTHERIA,AC PERTUSSIS ADULT (0.5 ML) BOOSTRIX IM (12:03)
[2022-05-02] MEDS: RABIES IMMUNE GLOBULIN/PF 1,500 UNITS/5 ML VIAL 1200 UNITS IM (12:20)
[2022-05-02] MEDS: RABIES VACCINE (RABAVERT) 2.5 UNITS VIAL IM (12:20)
[2022-05-02] MEDS: ACETAMINOPHEN 325 MG TABLET 650 MG PO (12:29)
== END 2022-05-02 13:01 | disposition home or self-care (01) ==
PROVIDERS: Emergency Provider Emergency Medicine; PCP Family Medicine
DX: S61.552A Open bite of left wrist, initial encounter (principal); Z23 Encounter for immunization; Z79.84 Long term (current) use of oral hypoglycemic drugs; F17.210 Nicotine dependence, cigarettes, uncomplicated; W55.51XA Bitten by raccoon, initial encounter
CPT/HCPCS: 90471; 90472; 90675; 90715; 96372; 99283; 90375; A9270

== ENCOUNTER 2022-05-16 07:00 | Outpatient (RCR) | payer MEDICARE, SELFPAY | END 2022-08-03 23:59 | disposition home or self-care (01) | LOC: ANHVASCINF 07:00 | PROVIDERS: PCP Family Medicine; Visit Provider Physician Assistant | DX: Z20.3 Contact with and (suspected) exposure to rabies (principal) | CPT/HCPCS: 90471; 90675 ==

== ENCOUNTER 2023-01-23 00:04 | Day surgery (SDC) | payer MEDICARE, SELFPAY ==
[2023-01-17 10:15] VITALS: BMI 26.2
[2023-01-23 09:53] VITALS: BP 155/70; PULSE 94; RESP 18; TEMP 36.6; O2SAT 98
--- NOTE | 2023-01-23 10:07 | WPDANESEPPF ---
Anes - Initial Pre Proc Eval Procedure: Operation Date: 01/23/23 11:00 Proposed Procedures p Colonoscopy - Jose Caballero MD Date/Time: 01/23/23 10:07 Surgeon: Jose Caballero MD Pre Op Diagnosis: diarrhea, neoplasm screening Patient Data Age: 78 Gender: F Height: 1.47 m Weight: 57.8 kg Last Vital Signs Temp 97.9 F 01/23/23 09:53 Pulse 94 01/23/23 09:53 Resp 18 01/23/23 09:53 BP 155/70 H 01/23/23 09:53 Pulse Ox 98 01/23/23 09:53 O2 Del Method Room Air 01/23/23 09:53 Allergies Allergy/AdvReac Type Severity Reaction Status Date / Time erythromycin base Allergy Unknown Rash Verified 01/23/23 09:52 Home Medications Medication Instructions Recorded Confirmed Type aspirin 81 mg chewable tablet 81 mg PO DAILY@0800 #30 tabs 12/10/21 01/17/23 Rx (Children's Aspirin) ticagrelor 90 mg tablet (Brilinta) 90 mg PO Q12HR #30 tabs 12/10/21 01/17/23 Rx cholecalciferol (vitamin D3) 25 25 mcg PO DAILY 02/07/22 01/17/23 History mcg (1,000 unit) tablet (Vitamin D3) coenzyme Q10 100 mg capsule 50 mg PO DAILY 02/07/22 01/17/23 History (CoQ-10) alprazolam 0.5 mg tablet 0.5 mg PO TID PRN Anxiety 12/01/22 01/17/23 History bimatoprost 0.01 % eye drops 1 drp EACH EYE QPM 12/01/22 01/17/23 History (Lumigan) dapagliflozin 10 mg tablet 10 mg PO DAILY 12/01/22 01/17/23 History (Farxiga) atorvastatin 80 mg tablet 80 mg PO DAILY 01/17/23 01/17/23 History citalopram 10 mg tablet 10 mg PO DAILY 01/17/23 01/17/23 History lisinopril 40 mg tablet 40 mg PO DAILY 01/17/23 01/17/23 History metoprolol tartrate 25 mg tablet 25 mg PO QAM 01/17/23 01/17/23 History Patient hx anesthesia problems: none Family hx anesthesia problems: none Results Review: All pre-operative results and documents have been reviewed as part of the pre-operative evaluation. FORMERLY [facility] Past Medical History Medical History (Updated 12/01/22 @ 11:21 by Jarrett Barrett MD) Anxiety Atherosclerotic heart disease Diabetes Diarrhea History of [place] (myocardial infarction) Hyperlipidemia Hypertension Iron deficiency Primary open angle glaucoma Surgical History Surgical History (Updated 12/01/22 @ 10:55 by Stacey Méndez MA) History of cardiac cath History of section x3 History of heart artery stent History of tubal ligation Family History Family History Mother Family history of glaucoma Family history of congestive heart failure Family history of chronic obstructive pulmonary disease Father Family history of malignant neoplasm Family history of Alzheimer's disease Grandparent Cerebrovascular accident Son Hypertension Other Diabetes mellitus Social History Social History (Updated 12/01/22 @ 10:54 by Stacey Méndez MA) Smoking packs per day: 0.75 Smoking cigarettes per day: 15.0 Years smoked: 62 Smoking pack-years: 46.50 Smoking status: Current every day smoker Tobacco type: cigarettes Second hand tobacco smoke exposure: No Additional smoking assessment comments: down to 0.5 packs per day Alcohol intake: never Substance use: never Substance use type: does not use Lack of Transportation: No Lack of Food: Never True Current Housing: I Have Housing Concerned About Future Housing: No Difficulty Paying Gas/Electric Bills: No Difficulty Paying for Meds: No Currently Unemployed: No Living arrangements: with family Occupation/Education: retired Gender identity (if verbalized by the patient): Female Sexual Orientation (if Verbalized by the Patient): Straight or Heterosexual Spiritual care concerns: No Anes - Eval Final PreProcedure Day of Procedure 01/23/23 10:07 Patient weight: normal Heart: regular rate and rhythm Lungs: clear to auscultation Airway: Mallampati scale class II Neurological: alert and oriented Last oral intake: >/= 8 hours ASA cl
[2023-01-23] MEDS: LACTATED RINGERS 1,000 ML 150 ML IV CONT (10:14)
--- NOTE | 2023-01-23 10:21 | PM.HPGS ---
History of Present Illness History of Present Illness Consent: Risks, benefits, and alternatives have been discussed and questions answered. Patient agrees to proceed with procedure. Chief complaint: diarrhea, neoplasm screening Narrative: Saida Chavis is a 78 year old female with loose stools for years but lately worse, last colonoscopy 2011. Trying OTC Review of Systems Constitutional: Constitutional: Denies headache(s) and Denies weakness Eyes: Eyes: Denies blurry vision ENT: Reports Normal hearing present, Denies headache(s) and Denies neck pain Cardiovascular: Cardiovascular: Denies chest pain and Denies dyspnea Respiratory: Respiratory: Denies dyspnea Gastrointestinal: Gastrointestinal: Reports no additional gastrointestinal complaints Genitourinary: Genitourinary: Denies dysuria Musculoskeletal: Musculoskeletal: Denies neck pain Integumentary/Breasts: Skin/Breast: Denies dry skin Neurologic: Reports Normal hearing present, Denies headache(s) and Denies weakness Psychiatric: Psychiatric: Denies anxiety Endocrine: Endocrine: Denies change in body appearance Hematologic/Lymphatic: Hematologic/Lymphatic: Denies easy bleeding Allergic/Immunologic: Allergic/Immunologic: Denies urticaria PMFSH Past Medical History Medical History (Updated 12/01/22 @ 11:21 by Jarrett Barrett MD) Anxiety Atherosclerotic heart disease Diabetes Diarrhea History of [place] (myocardial infarction) Hyperlipidemia Hypertension Iron deficiency Primary open angle glaucoma Surgical History Surgical History (Updated 12/01/22 @ 10:55 by Stacey Méndez MA) History of cardiac cath History of section x3 History of heart artery stent History of tubal ligation Family History Family History Mother Family history of glaucoma Family history of congestive heart failure Family history of chronic obstructive pulmonary disease Father Family history of malignant neoplasm Family history of Alzheimer's disease Grandparent Cerebrovascular accident Son Hypertension Other Diabetes mellitus Social History Social History (Updated 12/01/22 @ 10:54 by Stacey Méndez MA) Smoking packs per day: 0.75 Smoking cigarettes per day: 15.0 Years smoked: 62 Smoking pack-years: 46.50 Smoking status: Current every day smoker Tobacco type: cigarettes Second hand tobacco smoke exposure: No Additional smoking assessment comments: down to 0.5 packs per day Alcohol intake: never Substance use: never Substance use type: does not use Lack of Transportation: No Lack of Food: Never True Current Housing: I Have Housing Concerned About Future Housing: No Difficulty Paying Gas/Electric Bills: No Difficulty Paying for Meds: No Currently Unemployed: No Living arrangements: with family Occupation/Education: retired Gender identity (if verbalized by the patient): Female Sexual Orientation (if Verbalized by the Patient): Straight or Heterosexual Spiritual care concerns: No Meds Home Medications and Allergies Home Medications Medication Instructions Recorded Confirmed Type aspirin 81 mg chewable tablet 81 mg PO DAILY@0800 #30 tabs 12/10/21 01/17/23 Rx (Children's Aspirin) ticagrelor 90 mg tablet (Brilinta) 90 mg PO Q12HR #30 tabs 12/10/21 01/17/23 Rx cholecalciferol (vitamin D3) 25 25 mcg PO DAILY 02/07/22 01/17/23 History mcg (1,000 unit) tablet (Vitamin D3) coenzyme Q10 100 mg capsule 50 mg PO DAILY 02/07/22 01/17/23 History (CoQ-10) alprazolam 0.5 mg tablet 0.5 mg PO TID PRN Anxiety 12/01/22 01/17/23 History bimatoprost 0.01 % eye drops 1 drp EACH EYE QPM 12/01/22 01/17/23 History (Javid) dapagliflozin 10 mg tablet 10 mg PO DAILY 12/01/22 01/17/23 History (Bruno) atorvastatin 80 mg tablet 80 mg PO DAILY 01/17/23 01/17/23 History citalopram 10 mg tablet 10 mg PO DAILY 01/17/23 01/17/23 H
[2023-01-23 10:25] LABS: Glucose Point of Care 120 mg/dl (65-105)
[2023-01-23 11:18] VITALS: BP 154/105; PULSE 76; RESP 22; O2SAT 97
[2023-01-23 11:28] VITALS: BP 115/95; PULSE 73; RESP 16; O2SAT 100
[2023-01-23 11:38] VITALS: BP 157/67; PULSE 70; RESP 18; O2SAT 100
== END 2023-01-23 12:05 | disposition home or self-care (01) ==
PROVIDERS: PCP Family Medicine; Visit Provider Internal Medicine Gastroenterology
PROC: 0DJD8ZZ Inspection of Lower Intestinal Tract, Via Natural or Artificial Opening Endoscopic (ICD-10-PCS; CPT 45378; principal; 2023-01-23 11:00)
DX: Z12.11 Encounter for screening for malignant neoplasm of colon (principal); R19.7 Diarrhea, unspecified; D12.2 Benign neoplasm of ascending colon; D12.4 Benign neoplasm of descending colon; I25.10 Atherosclerotic heart disease of native coronary artery without angina pectoris; I10 Essential (primary) hypertension; E78.5 Hyperlipidemia, unspecified; E11.9 Type 2 diabetes mellitus without complications; I25.2 Old myocardial infarction; F41.9 Anxiety disorder, unspecified; Z95.5 Presence of coronary angioplasty implant and graft; F17.210 Nicotine dependence, cigarettes, uncomplicated; Z79.84 Long term (current) use of oral hypoglycemic drugs; Z79.82 Long term (current) use of aspirin; Z79.01 Long term (current) use of anticoagulants
CPT/HCPCS: 45385; 45380; 45381; 82948; 88305; J2704; J7120

== ENCOUNTER 2023-08-17 02:20 | Day surgery (SDC) | payer MEDICARE, SELFPAY ==
[2023-08-17 11:59] VITALS: BP 186/62; PULSE 84; RESP 18; TEMP 36.2; O2SAT 99
[2023-08-17] MEDS: LACTATED RINGERS 1,000 ML 150 ML IV CONT (12:11)
[2023-08-17 12:13] LABS: Glucose Point of Care 97 mg/dl (65-105)
--- NOTE | 2023-08-17 12:48 | PM.HPGS ---
History of Present Illness History of Present Illness Consent: Risks, benefits, and alternatives have been discussed and questions answered. Patient agrees to proceed with procedure. Chief complaint: hx colon polyps Narrative: Saida Chavis is a 78 year old female with large polyp removed 01/2023 Review of Systems Constitutional: Constitutional: Denies headache(s) and Denies weakness Eyes: Eyes: Denies blurry vision ENT: Reports Normal hearing present, Denies headache(s) and Denies neck pain Cardiovascular: Cardiovascular: Denies chest pain and Denies dyspnea Respiratory: Respiratory: Denies dyspnea Gastrointestinal: Gastrointestinal: Reports no additional gastrointestinal complaints Genitourinary: Genitourinary: Denies dysuria Musculoskeletal: Musculoskeletal: Denies neck pain Integumentary/Breasts: Skin/Breast: Denies dry skin Neurologic: Reports Normal hearing present, Denies headache(s) and Denies weakness Psychiatric: Psychiatric: Denies anxiety Endocrine: Endocrine: Denies change in body appearance Hematologic/Lymphatic: Hematologic/Lymphatic: Denies easy bleeding Allergic/Immunologic: Allergic/Immunologic: Denies urticaria PMFSH Past Medical History Medical History (Updated 08/17/23 @ 12:48 by Jose Caballero MD) Adenomatous colon polyp Anxiety Atherosclerosis of aorta Atherosclerotic heart disease Chronic kidney disease, stage 2 (mild) Diarrhea History of [place] (myocardial infarction) Hypertensive chronic kidney disease with stage 1 through stage 4 chronic kidney disease, or unspecified chronic kidney disease Iron deficiency Major depressive disorder, recurrent, in partial remission Nicotine dependence, cigarettes, uncomplicated Occlusion and stenosis of bilateral carotid arteries Other iron deficiency anemias Primary open angle glaucoma Pure hypercholesterolemia, unspecified Tobacco abuse 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, bilateral Type 2 diabetes mellitus with other circulatory complications Surgical History Surgical History History of cardiac cath History of section x3 History of heart artery stent History of tubal ligation Family History Family History Mother Family history of glaucoma Family history of congestive heart failure Family history of chronic obstructive pulmonary disease Father Family history of malignant neoplasm Family history of Alzheimer's disease Grandparent Cerebrovascular accident Son Hypertension Other Diabetes mellitus Social History Social History (Updated 07/14/23 @ 09:43 by Shefali Angel MA) Smoking packs per day: 0.75 Smoking cigarettes per day: 15.0 Years smoked: 62 Smoking pack-years: 46.50 Smoking status: Current every day smoker Tobacco type: cigarettes Second hand tobacco smoke exposure: No Additional smoking assessment comments: down to 0.5 packs per day Alcohol intake: current Substance use: never Substance use type: does not use Lack of Transportation: No Lack of Food: Never True Current Housing: I Have Housing Concerned About Future Housing: No Difficulty Paying Gas/Electric Bills: No Difficulty Paying for Meds: No Currently Unemployed: No Education: Associate Degree Difficulty w/ Childcare or Family Care: No Living arrangements: with family Occupation/Education: retired Gender identity (if verbalized by the patient): Female Sexual Orientation (if Verbalized by the Patient): Straight or Heterosexual Spiritual care concerns: No Meds Home Medications and Allergies Home Medications Medication Instructions Recorded Confirmed Type aspirin 81 mg chewable tablet 81 mg PO DAILY@0800 #30 tabs 12/10/21 08/09/23 Rx (Children'
--- NOTE | 2023-08-17 12:54 | WPDANESEPPF ---
Anes - Initial Pre Proc Eval Procedure: Operation Date: 08/17/23 13:15 Proposed Procedures p Colonoscopy - Jose Caballero MD Date/Time: 08/17/23 12:54 Surgeon: Jose Caballero MD Pre Op Diagnosis: hx colon polyps Patient Data Age: 78 Gender: F Height: 1.47 m Weight: 56.9 kg Last Vital Signs Temp 97.2 F L 08/17/23 11:59 Pulse 84 08/17/23 11:59 Resp 18 08/17/23 11:59 BP 186/62 H 08/17/23 11:59 Pulse Ox 99 08/17/23 11:59 O2 Del Method Room Air 08/17/23 11:59 Allergies Allergy/AdvReac Type Severity Reaction Status Date / Time No Known Allergies Allergy Verified 08/17/23 11:56 Home Medications Medication Instructions Recorded Confirmed Type aspirin 81 mg chewable tablet 81 mg PO DAILY@0800 #30 tabs 12/10/21 08/09/23 Rx (Children's Aspirin) cholecalciferol (vitamin D3) 25 25 mcg PO DAILY 02/07/22 08/09/23 History mcg (1,000 unit) tablet (Vitamin D3) coenzyme Q10 100 mg capsule 50 mg PO DAILY 02/07/22 08/09/23 History (CoQ-10) alprazolam 0.5 mg tablet 0.5 mg PO TID PRN Anxiety 12/01/22 08/09/23 History bimatoprost 0.01 % eye drops 1 drp EACH EYE QPM 12/01/22 08/09/23 History (Javid) dapagliflozin propanediol 10 mg 10 mg PO DAILY 12/01/22 08/09/23 History tablet (Farxiga) atorvastatin 80 mg tablet 80 mg PO DAILY 01/17/23 08/09/23 History citalopram 10 mg tablet 10 mg PO DAILY 01/17/23 08/09/23 History lisinopril 40 mg tablet 40 mg PO DAILY 01/17/23 08/09/23 History metoprolol tartrate 25 mg tablet 25 mg PO QAM 01/17/23 08/09/23 History cholestyramine (with sugar) 4 gram 4 g PO DAILY PRN Diarrhea 08/09/23 08/09/23 History powder for susp in a packet ticagrelor 90 mg tablet (Brilinta) 90 mg PO DAILY 08/09/23 08/09/23 History Laboratory Tests 08/17/23 12:10 POC Capillary Glucose 97 mg/dl (65-105) Patient hx anesthesia problems: none Family hx anesthesia problems: none Results Review: All pre-operative results and documents have been reviewed as part of the pre-operative evaluation. 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 Primary open angle glaucoma Pure hypercholesterolemia, unspecified Tobacco abuse 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, bilateral Type 2 diabetes mellitus with other circulatory complications Surgical History Surgical History History of cardiac cath History of section x3 History of heart artery stent History of tubal ligation Family History Family History Mother Family history of glaucoma Family history of congestive heart failure Family history of chronic obstructive pulmonary disease Father Family history of malignant neoplasm Family history of Alzheimer's disease Grandparent Cerebrovascular accident Son Hypertension Other Diabetes mellitus Social History Social History (Updated 05/18/23 @ 09:43 by Shefali Angel MA) Smoking packs per day: 0.75 Smoking cigarettes per day: 15.0 Years smoked: 62 Smoking pack-years: 46.50 Smoking status: Current every day smoker Tobacco type: cigarettes Second hand tobacco smoke exposure: No Additional smoking assessment commen
[2023-08-17 13:20] VITALS: BP 145/65; PULSE 72; RESP 23; O2SAT 96
[2023-08-17 13:30] VITALS: BP 131/54; PULSE 70; RESP 22; O2SAT 99
[2023-08-17 13:40] VITALS: BP 155/85; PULSE 71; RESP 24; O2SAT 100
== END 2023-08-17 13:42 | disposition home or self-care (01) ==
PROVIDERS: PCP Family Medicine; Visit Provider Internal Medicine Gastroenterology
PROC: 0DJD8ZZ Inspection of Lower Intestinal Tract, Via Natural or Artificial Opening Endoscopic (ICD-10-PCS; CPT 45378; principal; 2023-08-17 13:15)
DX: Z12.11 Encounter for screening for malignant neoplasm of colon (principal); D12.2 Benign neoplasm of ascending colon; D12.3 Benign neoplasm of transverse colon; K64.8 Other hemorrhoids; I12.9 Hypertensive chronic kidney disease with stage 1 through stage 4 chronic kidney disease, or unspecified chronic kidney disease; E11.22 Type 2 diabetes mellitus with diabetic chronic kidney disease; N18.2 Chronic kidney disease, stage 2 (mild); E11.3293 Type 2 diabetes mellitus with mild nonproliferative diabetic retinopathy without macular edema, bilateral; E78.00 Pure hypercholesterolemia, unspecified; D50.9 Iron deficiency anemia, unspecified; F33.41 Major depressive disorder, recurrent, in partial remission; F41.9 Anxiety disorder, unspecified; I25.10 Atherosclerotic heart disease of native coronary artery without angina pectoris; I25.2 Old myocardial infarction; H40.1190 Primary open-angle glaucoma, unspecified eye, stage unspecified; Z95.5 Presence of coronary angioplasty implant and graft; F17.210 Nicotine dependence, cigarettes, uncomplicated; Z79.82 Long term (current) use of aspirin; Z79.84 Long term (current) use of oral hypoglycemic drugs; Z79.01 Long term (current) use of anticoagulants
CPT/HCPCS: 45385; 82948; 88305; J2704; J7120